=== PATIENT | male | born 1960 | race Caucasian/White ===

== ENCOUNTER 2020-05-07 10:23 | Emergency (ER) | payer MEDICARE ==
[~2020-05-07] VITALS: Ht 180.3 cm; Wt 70.9 kg
[2020-05-07] MEDS ORDERED: RISP4TAB73 PO (11:47)
[2020-05-07 13:17] LABS: COVID AG,FIA SOURCE NASOPHARYNGEAL
[2020-05-07 14:41] VITALS: BP 128/76
== END 2020-05-07 14:58 | disposition home or self-care (01) ==
LOC: EMS 10:24
DX: U07.1 COVID-19 (principal)
CPT/HCPCS: 87426; 99283; U0003